=== PATIENT | female | born 1945 | race Caucasian/White ===

== ENCOUNTER 2017-07-10 13:40 | Emergency (ER) | payer MEDICARE ==
--- NOTE | 2017-07-10 14:25 | RAD ---
AP VIEW CHEST: Date: 07/10/17 HISTORY: 72-year-old with history of cough. FINDINGS: Comparison made to previous exam from 11/22/16. AP view of chest demonstrates the lungs to be well aerated. No evidence of active intrathoracic disea se is seen. No evidence of effusions, pneumonia, or pneumothorax seen. IMPRESSION: Unremarkable AP view of chest. POS: [facility]
[2017-07-10] MEDS ORDERED: predniSONE 20 MG TAB ONE (14:50)
== END 2017-07-10 15:11 | disposition home or self-care (01) ==
LOC: ERS 13:40
DX: J44.1 Chronic obstructive pulmonary disease with (acute) exacerbation (principal); Z87.891 Personal history of nicotine dependence
CPT/HCPCS: 71010; 93005; 94640; J7506

== ENCOUNTER 2019-03-19 11:59 | Outpatient (CLI) | payer MEDICARE ==
--- NOTE | 2019-03-19 14:04 | RAD ---
PA AND LATERAL VIEWS CHEST: Date: 03/19/19 HISTORY: Dyspnea. FINDINGS: Comparison made with exam of 07/10/17. The heart size is normal. The aorta is tortuous. The lungs are well expanded without lobar consolidat ion, pneumothoraces, or pleural effusions. There are degenerative changes in the spine. IMPRESSION: No acute process. POS: [facility]
== END 2019-03-19 12:00 | disposition home or self-care (01) ==
LOC: RAD 11:59
PROVIDERS: ATTEND Internal Medicine Pulmonary Disease
DX: R06.00 Dyspnea, unspecified (principal)
CPT/HCPCS: 71046

== ENCOUNTER 2019-04-15 13:40 | Outpatient (CLI) | payer MEDICARE ==
--- NOTE | 2019-04-15 13:56 | RAD ---
EXAM: XR Lumbar Spine 2 Or 3 View PROVIDED CLINICAL HISTORY: Low back pain COMPARISON: None FINDINGS: 5 nonrib-bearing lumbar-type vertebral bodies are demonstrated. There is slight anterolisthesis of L4 on L5. Lumbar alignment appears otherwise normal. Vertebral body heights appear preserved. Conspicuous disc space narrowing and endplate degenerative change with vacuum disc phenomenon at L2-3 . Intervertebral disc space heights appear otherwise preserved. Lower lumbar spine facet arthritis. Conspicuous colonic fecal retention. Vascular calcifications. IMPRESSION: 1. Lumbar degenerative change as described. 2. Conspicuous colonic fecal retention suggesting constipation.
--- NOTE | 2019-04-15 15:23 | RAD ---
XR Hip Lt 2-3 View: 04/15/2019 12:00 AM CLINICAL INDICATION: Pain COMPARISON: None. FINDINGS: Fracture:No fracture. Arthropathy:Moderate left hip joint osteoarthritis Incidental findings:None of significance. IMPRESSION: No acute osseous abnormality.
== END 2019-04-15 13:41 | disposition home or self-care (01) ==
LOC: RAD-FRANK 13:40
PROVIDERS: ATTEND Nurse Practitioner Family
DX: M25.552 Pain in left hip (principal); M54.5 Low back pain; M47.816 Spondylosis without myelopathy or radiculopathy, lumbar region
CPT/HCPCS: 72100

== ENCOUNTER 2019-04-22 13:19 | Outpatient (CLI) | payer MEDICARE ==
--- NOTE | 2019-04-22 14:41 | MRI ---
MRI Lower Ext Jt Lt hip WO Con HISTORY: Left hip pain avascular necrosis.. COMPARISON: Left hip films of 04/15/2019 FINDINGS: The SI joints are symmetric. There is no signs of any pelvic insufficiency-type fractures. Hardware involving the right hip obscures detail in this region. Small [id number] images of the left hip are performed which show marrow edema changes along the la teral side of the weightbearing surface of the femoral head with a small subchondral fracture present. This does not have a typical serpiginous appearance seen with avascular necrosis. The edema change extends along the lateral aspect of the femoral neck. There is an irregular frayed appearance to the anterior superior labrum small subchondral cyst is see n within the acetabulum. There is articular cartilage loss involving the femoral head associated with these changes. There is mild tendinosis of the gluteus medius tendon and minimal changes of the gluteus minimus tend on. No signs of muscle strain. IMPRESSION: 1. Marrow edema changes along the lateral weightbearing surface of the femoral head extending into th e femoral neck with a small subchondral insufficiency-type fracture present. There is also moderate articular cartilage loss of the femoral head in this region and associated degenerative changes of th e labrum.
== END 2019-04-22 13:20 | disposition home or self-care (01) ==
LOC: TBSIIMAG 13:19
PROVIDERS: ATTEND Orthopaedic Surgery
DX: M87.052 Idiopathic aseptic necrosis of left femur (principal); M16.12 Unilateral primary osteoarthritis, left hip

== ENCOUNTER 2019-10-22 11:02 | Outpatient (CLI) | payer MEDICARE ==
--- NOTE | 2019-10-22 11:23 | RAD ---
RIGHT FOOT 3 VIEWS: Date: 10/22/2019 HISTORY: Foot pain. FINDINGS: There is a transversely oriented fracture through the distal aspect of the proximal phalanx of the se cond toe. It appears nondisplaced. There are some mild arthritic changes of the first metatarsophalan geal joint and calcaneal spurs are noted. IMPRESSION: Fracture through the distal aspect of the proximal phalanx of the second toe. POS: [facility]
== END 2019-10-22 11:03 | disposition home or self-care (01) ==
LOC: RAD-FRANK 11:02
PROVIDERS: ATTEND Nurse Practitioner Family
DX: S99.921A Unspecified injury of right foot, initial encounter (principal); S92.511A Displaced fracture of proximal phalanx of right lesser toe(s), initial encounter for closed fracture

== ENCOUNTER 2020-04-28 14:04 | Outpatient (CLI) | payer MEDICARE ==
--- NOTE | 2020-04-28 14:21 | RAD ---
XR Chest Pa Lat STANDARD HISTORY: Dyspnea COMPARISON: 03/19/2019 FINDINGS: The heart size is normal. The aorta is tortuous. The lungs are well expanded without focal areas of consolidation, pneumothorax or pleural effusions. There are degenerative changes in the spine. IMPRESSION: No radiographic evidence of acute cardiopulmonary process.
== END 2020-04-28 14:05 | disposition home or self-care (01) ==
LOC: BICRAD 14:04
PROVIDERS: ATTEND Internal Medicine Pulmonary Disease
DX: R06.00 Dyspnea, unspecified (principal)
CPT/HCPCS: 71046

== ENCOUNTER 2020-06-03 13:06 | Inpatient (IN) | payer MEDICARE ==
[2020-06-03 14:10] LABS: #Lymphocytes 1.2 thou/uL (1.20-3.40); #Monocytes 0.6 thou/uL (0.11-0.59); #Neutrophils 2.9 thou/uL (1.40-6.50); %Basophils 0.5 % (0.0-1.0); %Eosinophils 0.1 % (0.0-10.0); %Lymphocytes 24.9 % (21.0-51.0); %Monocytes 12.3 % (0.0-10.0); %Neutrophils 62.2 % (42.0-75.0); Hemoglobin 13.7 g/dL (12.0-16.0); Mean Corpuscular HGB CONC 33.4 g/dL (32.0-36.0); Mean Corpuscular Hemoglobin 29.9 pg (27.0-31.0); Mean Corpuscular Volume 89.6 fL (78.0-98.0); Mean Platelet Volume 7.1 fL (7.4-10.4); Platelet Count 237 thou/uL (130-400); RBC Distribution Width 11.9 % (11.5-14.5); Red Blood Cell (RBC) Count 4.59 mill/uL (4.20-5.40); White Blood Cell (WBC) Count 4.7 thou/uL (4.8-10.8)
--- NOTE | 2020-06-03 14:11 | RAD ---
Chest AP view INDICATION: 75-year-old female with history of Covid positive status and increased cough and shortnes s of breath COMPARISON: April 28, 2020 FINDINGS: Lungs: There are new peripheral groundglass airspace opacities seen within the peripheral right uppe r lobe and right midlung. Patchy opacities are suspected within the left lower lobe. This is superimposed on moderate COPD change. Cardiac silhouette: The cardiomediastinal silhouette appears within normal limits. Pulmonary vasculature: Normal Pleural spaces: No pleural effusion or pneumothorax is demonstrated. Upper abdomen: No abnormality seen. Osseous structures: No acute osseous abnormality. Additional findings: None. IMPRESSION: New peripheral groundglass opacities within the right midlung and right upper lobe and possibly withi n the left lower lobe suspicious for atypical pneumonia. COPD change appears similar to the comparison.
[2020-06-03] MEDS ORDERED: Ondansetron ODT 4 MG TAB ONE (14:14)
[2020-06-03] MEDS ORDERED: Ibuprofen 200 MG TAB ONE (14:14)
[2020-06-03] MEDS ORDERED: Acetaminophen 500 MG TAB ONE (14:14)
[2020-06-03 14:31] LABS: ALT (SGPT) 26 U/L (8-55); AST (SGOT) 38 U/L (5-34); Albumin 3.7 g/dL (3.4-4.8); Alkaline Phosphatase 113 U/L (40-110); Anion Gap 14 mmol/L (10-20); BUN (Urea Nitrogen) 13 mg/dL (9.8-20.1); Bilirubin, Total 0.4 mg/dL (0.2-1.2); Calc. Creatinine Clearance 0 mL/min (70-130); Calcium 8.2 mg/dL (7.8-10.44); Carbon Dioxide 28 mmol/L (23-31); Chloride 101 mmol/L (98-107); Estimated GFR-MDRD 87; Globulin 2.4 g/dL (2.4-3.5); Glucose 98 mg/dL (83-110); Potassium 4.3 mmol/L (3.5-5.1); Protein, Total 6.1 g/dL (6.0-8.3); Sodium 139 mmol/L (136-145)
[2020-06-03] MEDS ORDERED: Azithromycin 250 MG TAB ONE (14:55)
[2020-06-03] MEDS ORDERED: Dexamethasone 4 MG TAB ONE (14:57)
--- NOTE | 2020-06-03 17:07 | PDOC.HHP ---
Hospitalist HPI - History of Present Illness Malaise History of Present Illness: Patient is a 75-year-old female with a history of some COPD. She reports that she started feeling bad about 8 days ago. 7 days ago she tested positive for Covid. Since that time she reports that she has felt horrible. She has a difficult time being more decisive and explaining that. She has sounds like generalized malaise given profound fatigue. She specifically says she has not felt significantly short of breath which surprises her because of her COPD. She has an inhaler at home but she has not used it in a week. She also denies significant fever. Her has also been Covid positive and similarly ill. She presented today because she said she simply could not tolerate feeling bad anymore. ED Course: [facility] Hospitalist ROS - Review of Systems Constitutional: reports: weakness, malaise. denies: fever, chills Respiratory: denies: cough, shortness of breath Cardiovascular: denies: chest pain, palpitations Gastrointestinal: denies: diarrhea, constipation Skin: reports: rash Neurological: reports: weakness Other: Poor appetite. Dryness in her throat. All other systems reviewed; all pertinent +/- noted in HPI/Subj - Medication Medications: Spiriva HandiHaler 18 mcg inhaled daily Advair Diskus 250/50 1 inhalation daily Lipitor 20 mg p.o. nightly Aspirin 81 mg daily Hospitalist History - Past Medical History Source: patient, old records Pulmonary: reports: COPD - Past Surgical History Other Surgical History: Uterine surgery. Right hip replacement 2012. - Family History Family History: reports: no pertinent history - Social History Smoking Status: Former smoker Alcohol: reports: None Drugs: reports: none Living Situation: With Family - Exam General Appearance: NAD, awake alert Neck: supple, symmetric, no JVD, no thyromegaly, no lymphadenopathy, no carotid bruit Heart: RRR, no murmur, no gallops, no rubs, normal peripheral pulses Respiratory: CTAB, no wheezes, no rales, no ronchi, normal chest expansion, no tachypnea, normal percussion Gastrointestinal: soft, non-tender, non-distended, normal bowel sounds, no palpable masses, no hepatomegaly, no splenomegaly, no bruit Extremities: no cyanosis, no clubbing, no edema Musculoskeletal: normal tone, normal strength, no muscle wasting Psychiatric: normal affect, lethargic Hospitalist Results - Labs Result Diagrams: 06/03/20 13:52 06/03/20 13:52 Lab results: WBC 4.7 thou/uL (4.8-10.8) L 06/03/20 13:52 Hgb 13.7 g/dL (12.0-16.0) 06/03/20 13:52 Hct 41.1 % (36.0-47.0) 06/03/20 13:52 MCV 89.6 fL (78.0-98.0) 06/03/20 13:52 Plt Count 237 thou/uL (130-400) 06/03/20 13:52 Neutrophils % 62.2 % (42.0-75.0) 06/03/20 13:52 Sodium 139 mmol/L (136-145) 06/03/20 13:52 Potassium 4.3 mmol/L (3.5-5.1) 06/03/20 13:52 Chloride 101 mmol/L (98-107) 06/03/20 13:52 Carbon Dioxide 28 mmol/L (23-31) 06/03/20 13:52 BUN 13 mg/dL (9.8-20.1) 06/03/20 13:52 Creatinine 0.66 mg/dL (0.6-1.1) 06/03/20 13:52 Glucose 98 mg/dL (83-110) 06/03/20 13:52 Calcium 8.2 mg/dL (7.8-10.44) 06/03/20 13:52 Total Bilirubin 0.4 mg/dL (0.2-1.2) 06/03/20 13:52 AST 38 U/L (5-34) H 06/03/20 13:52 ALT 26 U/L (8-55) 06/03/20 13:52 Alkaline Phosphatase 113 U/L (40-110) H 06/03/20 13:52 Troponin I Less than 0.010 ng/mL (< 0.028) 06/03/20 13:52 Serum Total Protein 6.1 g/dL (6.0-8.3) 06/03/20 13:52 Albumin 3.7 g/dL (3.4-4.8) 06/03/20 13:52 - Radiology Interpretation Chest x-ray Status: report reviewed by me Additional Comment: When compared to the chest x-ray of April 28, 2020 there are new peripheral groundglass opacities within the right midlung and right upper lobe and possibly within the left lower lobe suspicious for atypical pneumonia. COPD changes also present. Hospitalist H&P A/P - Problem (1) Acute respiratory failure with hypoxia Code(s): J96.01 - ACUTE RESPIRATORY FAILURE WITH HYPOXIA Status: Acute (2) COVID-19 virus infection Code(s): U07.1 - COVID-19 Status: Acute (3) COPD (chronic obstructive pulmonary disease) Status: Acute (4) Hyperlipidemia Code(s): E78.5 - HYPERLIPIDEMIA, UNSPECIFIED Status: Acute - Plan Plan: 75-year-old female presented to the emergency department with 1 week of Covid positivity, generalized malaise, poor appetite. She appeared to be satting fairly normally on room air however when she attempted to ambulate her oxygen saturation dropped into the 70s. She was subsequently placed on supplemental oxygen to maintain her work of breathing. Acute hypoxic respiratory failure: Patient has some mild patchy infiltrates on chest x-ray. She has COVID-19 pneumonia. Will maintain supplemental oxygen as needed. COVID-19 pneumonia: Findings on chest x-ray are consistent with her diagnosis of COVID-19 pneumonia. Do not suspect any underlying bacterial infection. White count is low consistent with Covid. We will keep her on Decadron and will initiate Remdesivir after discussion with ID. Check inflammatory markers in the morning. DVT prophylaxis with Lovenox twice daily. COPD: Supplemental oxygen, steroids, inhalers. Hyperlipidemia: Continue statin.
[2020-06-03 17:29] VITALS: BMI 25.4
[2020-06-03] MEDS ORDERED: REMDESIVIR (EUA) 200 MG in Sodium Chloride 0.9% 250 ML 210 ML IV SCH (17:45)
[2020-06-03] MEDS: Sodium Chloride 0.9% 1,000 ML IV SCH (18:05)
[2020-06-03] MEDS: Famotidine 20 MG TAB PO SCH (20:44)
[2020-06-03] MEDS: Enoxaparin Sodium 40 MG/0.4 ML SYRINGE SC SCH (20:45)
[2020-06-04] MEDS: Sodium Chloride 0.9% 1,000 ML IV SCH ×2 (06:32→20:19)
[2020-06-04 06:45] LABS: Hemoglobin 13.3 g/dL (12.0-16.0); Mean Corpuscular HGB CONC 32.2 g/dL (32.0-36.0); Mean Corpuscular Hemoglobin 29.7 pg (27.0-31.0); Mean Corpuscular Volume 92.4 fL (78.0-98.0); Mean Platelet Volume 7.5 fL (7.4-10.4); Platelet Count 190 thou/uL (130-400); RBC Distribution Width 11.8 % (11.5-14.5); Red Blood Cell (RBC) Count 4.47 mill/uL (4.20-5.40); White Blood Cell (WBC) Count 1.7 thou/uL (4.8-10.8)
[2020-06-04 07:02] LABS: ALT (SGPT) 21 U/L (8-55); AST (SGOT) 25 U/L (5-34); Albumin 3.2 g/dL (3.4-4.8); Alkaline Phosphatase 101 U/L (40-110); Bilirubin, Direct 0.2 mg/dL (0.1-0.3); Bilirubin, Total 0.2 mg/dL (0.2-1.2); Protein, Total 5.7 g/dL (6.0-8.3)
[2020-06-04 07:03] LABS: Anion Gap 13 mmol/L (10-20); BUN (Urea Nitrogen) 13 mg/dL (9.8-20.1); Calc. Creatinine Clearance 73 mL/min (70-130); Calcium 7.9 mg/dL (7.8-10.44); Carbon Dioxide 21 mmol/L (23-31); Chloride 110 mmol/L (98-107); Estimated GFR-MDRD 86; Glucose 261 mg/dL (83-110); Sodium 140 mmol/L (136-145)
[2020-06-04] MEDS: Dexamethasone 4 MG TAB PO SCH (08:01)
[2020-06-04] MEDS: Cholecalciferol (Vitamin D3) 400 UNITS TAB PO SCH (08:01)
[2020-06-04] MEDS: Famotidine 20 MG TAB PO SCH ×2 (08:01→20:19)
[2020-06-04] MEDS: Ascorbic Acid 500 mg Chewable Tablet PO SCH (08:01)
[2020-06-04] MEDS: Enoxaparin Sodium 40 MG/0.4 ML SYRINGE SC SCH ×2 (08:01→20:19)
[2020-06-04] MEDS: Zinc Sulfate 220 MG CAP PO SCH (08:02)
[2020-06-04 09:06] LABS: #Lymphocytes 0.6 thou/uL (1.20-3.40); #Monocytes 0.2 thou/uL (0.11-0.59); #Neutrophils 0.8 thou/uL (1.40-6.50); %Basophils 2.1 % (0.0-1.0); %Eosinophils 0.2 % (0.0-10.0); %Lymphocytes 35.7 % (21.0-51.0); %Monocytes 13.5 % (0.0-10.0); %Neutrophils 48.5 % (42.0-75.0); Band 4 % (5-11); Lymphocytes 36 % (21-51); MDiff Complete? YES; Monocytes 19 % (0-10); Neutrophil 41 % (42-75); RBC Morphology Normal
--- NOTE | 2020-06-04 15:47 | PDOC.HOSPP ---
- Subjective Encounter Date: 06/04/20 Subjective: The patient still complains of shortness of breath and cough. - Objective Vital Signs & Weight: Vital Signs (12 hours) Temp Pulse Resp BP Pulse Ox 06/04/20 13:15 97.9 F 64 16 114/73 96 06/04/20 08:03 97.8 F 58 L 18 121/75 96 06/04/20 05:06 97.9 F 65 18 105/64 97 Weight Admit Weight 143 lb 4.8 oz Weight 143 lb 4.807 oz I&O: 06/03/20 06/04/20 06/05/20 06:59 06:59 06:59 Intake Total 1150 240 Balance 1150 240 Result Diagrams: 06/04/20 06:26 06/04/20 06:26 Hospitalist ROS - Medication Medications: Active Medications Generic Name Dose Route Start Last Admin Trade Name Freq PRN Reason Stop Dose Admin Ascorbic Acid 1,000 mg 06/04/20 09:00 06/04/20 08:01 Ascorbic Acid 500 Mg Chewable Tablet PO 1,000 mg DAILY CHE Administration Cholecalciferol 400 units 06/04/20 09:00 06/04/20 08:01 Cholecalciferol (Vitamin D3) 400 Units Tab PO 400 units DAILY CHE Administration Dexamethasone 6 mg 06/04/20 08:00 06/04/20 08:01 Dexamethasone 4 Mg Tab PO 6 mg QAM-WM CHE Administration Enoxaparin Sodium 40 mg 06/03/20 21:00 06/04/20 08:01 Enoxaparin Sodium 40 Mg/0.4 Ml Syringe SC 40 mg BID CHE Administration Famotidine 20 mg 06/03/20 21:00 06/04/20 08:01 Famotidine 20 Mg Tab PO 20 mg BID CHE Administration Sodium Chloride 1,000 mls @ 75 mls/hr 06/03/20 17:00 06/04/20 06:32 Normal Saline 0.9% IV 1,000 mls .[id number] CHE Administration Zinc Sulfate 220 mg 06/04/20 09:00 06/04/20 08:02 Zinc Sulfate 220 Mg Cap PO 220 mg DAILY CHE Administration - Exam General Appearance: awake alert ENT: normocephalic atraumatic Neck: supple, no JVD Heart: RRR Extremities: no cyanosis, no clubbing Neurological: cranial nerve grossly intact, no focal deficits Hosp A/P (1) Acute respiratory failure with hypoxia Code(s): J96.01 - ACUTE RESPIRATORY FAILURE WITH HYPOXIA Status: Acute (2) COPD (chronic obstructive pulmonary disease) Status: Acute (3) COVID-19 virus infection Code(s): U07.1 - COVID-19 Status: Acute (4) Hyperlipidemia Code(s): E78.5 - HYPERLIPIDEMIA, UNSPECIFIED Status: Acute - Plan Continue supplemental oxygen as needed. The patient is remdesivir, dexamethasone, and nebulizer treatments. Continue anticoagulation with enoxaparin.
[2020-06-04] MEDS: REMDESIVIR (EUA) 100 MG in Sodium Chloride 0.9% 250 ML 230 ML IV SCH (17:34)
[2020-06-04] MEDS: Senokot S 8.6-50 MG TAB PO PRN (22:04)
[2020-06-05 08:04] LABS: ALT (SGPT) 17 U/L (8-55); AST (SGOT) 21 U/L (5-34); Albumin 3.1 g/dL (3.4-4.8); Alkaline Phosphatase 84 U/L (40-110); Bilirubin, Direct 0.2 mg/dL (0.1-0.3); Bilirubin, Total 0.2 mg/dL (0.2-1.2); Protein, Total 5.1 g/dL (6.0-8.3)
[2020-06-05] MEDS: Enoxaparin Sodium 40 MG/0.4 ML SYRINGE SC SCH ×2 (08:46→21:16)
[2020-06-05] MEDS: Famotidine 20 MG TAB PO SCH ×2 (08:46→21:16)
[2020-06-05] MEDS: Dexamethasone 4 MG TAB PO SCH (08:46)
[2020-06-05] MEDS: Ascorbic Acid 500 mg Chewable Tablet PO SCH (08:46)
[2020-06-05] MEDS: Zinc Sulfate 220 MG CAP PO SCH (08:46)
[2020-06-05] MEDS: Sodium Chloride 0.9% 1,000 ML IV SCH ×3 (08:47→23:13)
[2020-06-05] MEDS: Cholecalciferol (Vitamin D3) 400 UNITS TAB PO SCH (12:25)
[2020-06-05] MEDS: Senokot S 8.6-50 MG TAB PO PRN (12:25)
[2020-06-05] MEDS: REMDESIVIR (EUA) 100 MG in Sodium Chloride 0.9% 250 ML 230 ML IV SCH (17:59)
--- NOTE | 2020-06-05 18:03 | PDOC.HOSPP ---
- Subjective Encounter Date: 06/05/20 Subjective: Still oxygen dependent but feels better. - Objective Vital Signs & Weight: Vital Signs (12 hours) Temp Pulse Resp BP Pulse Ox 06/05/20 08:00 97.9 F 53 L 18 120/74 96 Weight Admit Weight 143 lb 4.8 oz Weight 143 lb 4.807 oz I&O: 06/04/20 06/05/20 06/06/20 06:59 06:59 06:59 Intake Total 1150 360 Balance 1150 360 Result Diagrams: 06/04/20 06:26 06/04/20 06:26 Hospitalist ROS - Medication Medications: Active Medications Generic Name Dose Route Start Last Admin Trade Name Freq PRN Reason Stop Dose Admin Ascorbic Acid 1,000 mg 06/04/20 09:00 06/05/20 08:46 Ascorbic Acid 500 Mg Chewable Tablet PO 1,000 mg DAILY CHE Administration Cholecalciferol 400 units 06/04/20 09:00 06/05/20 12:25 Cholecalciferol (Vitamin D3) 400 Units Tab PO 400 units DAILY CHE Administration Dexamethasone 6 mg 06/04/20 08:00 06/05/20 08:46 Dexamethasone 4 Mg Tab PO 6 mg QAM-WM CHE Administration Enoxaparin Sodium 40 mg 06/03/20 21:00 06/05/20 08:46 Enoxaparin Sodium 40 Mg/0.4 Ml Syringe SC 40 mg BID CHE Administration Famotidine 20 mg 06/03/20 21:00 06/05/20 08:46 Famotidine 20 Mg Tab PO 20 mg BID CHE Administration Sodium Chloride 1,000 mls @ 75 mls/hr 06/03/20 17:00 06/05/20 08:47 Normal Saline 0.9% IV 1,000 mls .[id number] CHE Administration Remdesivir 100 mg/ Sodium 250 mls @ 250 mls/hr 06/04/20 18:00 06/04/20 17:34 Chloride IV 06/07/20 18:59 250 mls 1800 CHE Administration Senna/Docusate Sodium 2 tab 06/04/20 21:45 06/05/20 12:25 Senokot S 8.6-50 Mg Tab PO 2 tab BID PRN Administration Constipation Zinc Sulfate 220 mg 06/04/20 09:00 06/05/20 08:46 Zinc Sulfate 220 Mg Cap PO 220 mg DAILY CHE Administration - Exam General Appearance: awake alert ENT: normocephalic atraumatic Neck: supple, no JVD Heart: RRR Respiratory: normal chest expansion, no tachypnea Gastrointestinal: soft Extremities: no cyanosis, no clubbing Neurological: cranial nerve grossly intact, no focal deficits Hosp A/P (1) Acute respiratory failure with hypoxia Code(s): J96.01 - ACUTE RESPIRATORY FAILURE WITH HYPOXIA Status: Acute (2) COPD (chronic obstructive pulmonary disease) Status: Acute (3) COVID-19 virus infection Code(s): U07.1 - COVID-19 Status: Acute (4) Hyperlipidemia Code(s): E78.5 - HYPERLIPIDEMIA, UNSPECIFIED Status: Acute - Plan Continue supplemental oxygen as needed. The patient is remdesivir, dexamethasone, and nebulizer treatments. Continue to monitor LFTs. Continue anticoagulation with enoxaparin.
[2020-06-06] MEDS: Enoxaparin Sodium 40 MG/0.4 ML SYRINGE SC SCH (07:53)
[2020-06-06] MEDS: Zinc Sulfate 220 MG CAP PO SCH (07:54)
[2020-06-06] MEDS: Famotidine 20 MG TAB PO SCH ×2 (07:54→19:35)
[2020-06-06] MEDS: Ascorbic Acid 500 mg Chewable Tablet PO SCH (07:54)
[2020-06-06] MEDS: Dexamethasone 4 MG TAB PO SCH (07:54)
[2020-06-06] MEDS: Cholecalciferol (Vitamin D3) 400 UNITS TAB PO SCH (07:54)
[2020-06-06] MEDS: Sodium Chloride 0.9% 1,000 ML IV SCH (08:16)
[2020-06-06 08:17] LABS: #Lymphocytes 1.4 thou/uL (1.20-3.40); #Monocytes 0.6 thou/uL (0.11-0.59); #Neutrophils 3.7 thou/uL (1.40-6.50); %Eosinophils 0.1 % (0.0-10.0); %Lymphocytes 24.6 % (21.0-51.0); %Monocytes 10.3 % (0.0-10.0); Hemoglobin 12.4 g/dL (12.0-16.0); Mean Corpuscular HGB CONC 32.5 g/dL (32.0-36.0); Mean Corpuscular Hemoglobin 29.6 pg (27.0-31.0); Mean Corpuscular Volume 91.2 fL (78.0-98.0); Mean Platelet Volume 7.8 fL (7.4-10.4); Platelet Count 235 thou/uL (130-400); RBC Distribution Width 11.9 % (11.5-14.5); Red Blood Cell (RBC) Count 4.19 mill/uL (4.20-5.40); White Blood Cell (WBC) Count 5.7 thou/uL (4.8-10.8)
[2020-06-06 08:30] LABS: ALT (SGPT) 16 U/L (8-55); AST (SGOT) 16 U/L (5-34); Alkaline Phosphatase 83 U/L (40-110); Anion Gap 14 mmol/L (10-20); BUN (Urea Nitrogen) 13 mg/dL (9.8-20.1); Bilirubin, Direct 0.2 mg/dL (0.1-0.3); Bilirubin, Total 0.3 mg/dL (0.2-1.2); Calc. Creatinine Clearance 93 mL/min (70-130); Calcium 7.8 mg/dL (7.8-10.44); Carbon Dioxide 22 mmol/L (23-31); Chloride 110 mmol/L (98-107); Estimated GFR-MDRD Greater than 90; Glucose 94 mg/dL (83-110); Protein, Total 5.3 g/dL (6.0-8.3); Sodium 142 mmol/L (136-145)
[2020-06-06 08:32] LABS: ALT (SGPT) 14 U/L (8-55); AST (SGOT) 16 U/L (5-34); Alkaline Phosphatase 80 U/L (40-110); Anion Gap 14 mmol/L (10-20); BUN (Urea Nitrogen) 13 mg/dL (9.8-20.1); Bilirubin, Total 0.2 mg/dL (0.2-1.2); Calc. Creatinine Clearance 85 mL/min (70-130); Calcium 7.7 mg/dL (7.8-10.44); Carbon Dioxide 25 mmol/L (23-31); Chloride 107 mmol/L (98-107); Estimated GFR-MDRD Greater than 90; Globulin 2.2 g/dL (2.4-3.5); Glucose 98 mg/dL (83-110); Potassium 3.9 mmol/L (3.5-5.1); Protein, Total 5.2 g/dL (6.0-8.3); Sodium 142 mmol/L (136-145)
[2020-06-06] MEDS ORDERED: Albuterol 200 PUFF (6.7GM INHALER) INH PRN (13:03)
--- NOTE | 2020-06-06 13:14 | PDOC.HOSPP ---
- Subjective Encounter Date: 06/06/20 (f/u COVID pneumonia) Encounter Time: 13:12 Subjective: Pt reports not feeling as well this morning as yesterday. States this afternoon is better. She reports poor appetite, some productive cough. She denies any cp or change in breathing. - Objective Vital Signs & Weight: Vital Signs (12 hours) Temp Pulse Resp BP Pulse Ox 06/06/20 08:14 98 F 67 20 157/73 H 95 06/06/20 08:00 95 Weight Admit Weight 143 lb 4.8 oz Weight 143 lb 4.807 oz I&O: 06/05/20 06/06/20 06/07/20 06:59 06:59 06:59 Intake Total 360 1555 Balance 360 1555 Result Diagrams: 06/06/20 07:40 06/06/20 07:40 Hospitalist ROS - Medication Medications: Active Medications Generic Name Dose Route Start Last Admin Trade Name Freq PRN Reason Stop Dose Admin Ascorbic Acid 1,000 mg 06/04/20 09:00 06/06/20 07:54 Ascorbic Acid 500 Mg Chewable Tablet PO 1,000 mg DAILY CHE Administration Cholecalciferol 400 units 06/04/20 09:00 06/06/20 07:54 Cholecalciferol (Vitamin D3) 400 Units Tab PO 400 units DAILY CHE Administration Dexamethasone 6 mg 06/04/20 08:00 06/06/20 07:54 Dexamethasone 4 Mg Tab PO 6 mg QAM-WM CHE Administration Famotidine 20 mg 06/03/20 21:00 06/06/20 07:54 Famotidine 20 Mg Tab PO 20 mg BID CHE Administration Remdesivir 100 mg/ Sodium 250 mls @ 250 mls/hr 06/04/20 18:00 06/05/20 17:59 Chloride IV 06/07/20 18:59 250 mls 1800 CHE Administration Senna/Docusate Sodium 2 tab 06/04/20 21:45 06/05/20 12:25 Senokot S 8.6-50 Mg Tab PO 2 tab BID PRN Administration Constipation Zinc Sulfate 220 mg 06/04/20 09:00 06/06/20 07:54 Zinc Sulfate 220 Mg Cap PO 220 mg DAILY CHE Administration - Exam General Appearance: NAD Heart: RRR, no murmur Respiratory: no wheezes, no rales, no ronchi Respiratory - other findings: good air movement Gastrointestinal: soft, non-tender, non-distended, normal bowel sounds Extremities: no cyanosis, no clubbing, no edema Psychiatric: normal affect Hosp A/P (1) Acute respiratory failure with hypoxia Code(s): J96.01 - ACUTE RESPIRATORY FAILURE WITH HYPOXIA Status: Acute (2) COPD (chronic obstructive pulmonary disease) Status: Acute Qualifiers: COPD type: unspecified COPD Qualified Code(s): J44.9 - Chronic obstructive pulmonary disease, unspecified (3) COVID-19 virus infection Code(s): U07.1 - COVID-19 Status: Acute - Plan Acute resp failure secondary to covid pneumonia - on steroids, remdesivir - continue supplemental oxygen - wean as tolerated - prn MDI albuterol - check inflammatory markers tomorrow Dyslipidemia - per chart review, pt denies any medications at home Pt taking PO -d/c IVF dvt prophy - lovenox - change to once daily gi prophy - on famotidine while on steroids code status - full reviewed plan of care with patient, no questions or further needs at end of eval.
--- NOTE | 2020-06-06 17:13 | EKG ---
Test Reason : Blood Pressure : / mmHG Vent. Rate : 071 BPM Atrial Rate : 071 BPM P-R Int : 166 ms QRS Dur : 076 ms QT Int : 360 ms P-R-T Axes : 080 035 076 degrees QTc Int : 391 ms Normal sinus rhythm Normal ECG Confirmed by RAVIN CAMACHO DO ([id number]), editor publications ZARIA JOHNSON ([id number]) on 06/06/2020 5:12:31 PM Referred By: Confirmed By:RAVIN CAMACHO DO
[2020-06-06] MEDS: REMDESIVIR (EUA) 100 MG in Sodium Chloride 0.9% 250 ML 230 ML IV SCH (19:35)
[2020-06-07 06:58] LABS: #Lymphocytes 1.8 thou/uL (1.20-3.40); #Monocytes 0.6 thou/uL (0.11-0.59); #Neutrophils 3.4 thou/uL (1.40-6.50); %Eosinophils 0.2 % (0.0-10.0); %Lymphocytes 30.9 % (21.0-51.0); %Monocytes 10.8 % (0.0-10.0); %Neutrophils 58.1 % (42.0-75.0); Hemoglobin 12.7 g/dL (12.0-16.0); Mean Corpuscular HGB CONC 32.1 g/dL (32.0-36.0); Mean Corpuscular Hemoglobin 29.1 pg (27.0-31.0); Mean Corpuscular Volume 90.8 fL (78.0-98.0); Mean Platelet Volume 7.6 fL (7.4-10.4); Platelet Count 266 thou/uL (130-400); RBC Distribution Width 11.8 % (11.5-14.5); Red Blood Cell (RBC) Count 4.35 mill/uL (4.20-5.40); White Blood Cell (WBC) Count 5.9 thou/uL (4.8-10.8)
[2020-06-07 07:20] LABS: ALT (SGPT) 17 U/L (8-55); AST (SGOT) 18 U/L (5-34); Albumin 3.1 g/dL (3.4-4.8); Alkaline Phosphatase 83 U/L (40-110); Anion Gap 14 mmol/L (10-20); BUN (Urea Nitrogen) 14 mg/dL (9.8-20.1); Bilirubin, Direct 0.2 mg/dL (0.1-0.3); Bilirubin, Total 0.4 mg/dL (0.2-1.2); Calc. Creatinine Clearance 91 mL/min (70-130); Calcium 8.2 mg/dL (7.8-10.44); Carbon Dioxide 27 mmol/L (23-31); Chloride 104 mmol/L (98-107); Estimated GFR-MDRD Greater than 90; Glucose 90 mg/dL (83-110); Potassium 3.9 mmol/L (3.5-5.1); Protein, Total 5.3 g/dL (6.0-8.3); Sodium 141 mmol/L (136-145)
[2020-06-07] MEDS: Enoxaparin Sodium 40 MG/0.4 ML SYRINGE SC SCH (08:25)
[2020-06-07] MEDS: Dexamethasone 4 MG TAB PO SCH (08:25)
[2020-06-07] MEDS: Ascorbic Acid 500 mg Chewable Tablet PO SCH (08:26)
[2020-06-07] MEDS: Zinc Sulfate 220 MG CAP PO SCH (08:26)
[2020-06-07] MEDS: Famotidine 20 MG TAB PO SCH ×2 (08:26→20:00)
[2020-06-07] MEDS: Cholecalciferol (Vitamin D3) 400 UNITS TAB PO SCH (08:26)
--- NOTE | 2020-06-07 14:21 | PDOC.HOSPP ---
- Subjective Encounter Date: 06/07/20 (acute resp failure due to covid pna) Encounter Time: 14:19 Subjective: Pt reports feeling tired. Breathing is about the same, she was able to bathe earlier today. She denies any n/v/abd pain. She continues to cough. She denies any new sx. - Objective Vital Signs & Weight: Vital Signs (12 hours) Temp Pulse Resp BP Pulse Ox 06/07/20 08:45 98.1 F 71 24 H 113/64 96 06/07/20 08:00 96 Weight Admit Weight 143 lb 4.8 oz Weight 143 lb 4.807 oz I&O: 06/06/20 06/07/20 06/08/20 06:59 06:59 06:59 Intake Total 1555 930 350 Balance 1555 930 350 Result Diagrams: 06/07/20 06:31 06/07/20 06:31 Hospitalist ROS - Medication Medications: Active Medications Generic Name Dose Route Start Last Admin Trade Name Freq PRN Reason Stop Dose Admin Ascorbic Acid 1,000 mg 06/04/20 09:00 06/07/20 08:26 Ascorbic Acid 500 Mg Chewable Tablet PO 1,000 mg DAILY CHE Administration Cholecalciferol 400 units 06/04/20 09:00 06/07/20 08:26 Cholecalciferol (Vitamin D3) 400 Units Tab PO 400 units DAILY CHE Administration Dexamethasone 6 mg 06/04/20 08:00 06/07/20 08:25 Dexamethasone 4 Mg Tab PO 6 mg QAM-WM CHE Administration Enoxaparin Sodium 40 mg 06/07/20 09:00 06/07/20 08:25 Enoxaparin Sodium 40 Mg/0.4 Ml Syringe SC 40 mg DAILY CHE Administration Famotidine 20 mg 06/03/20 21:00 06/07/20 08:26 Famotidine 20 Mg Tab PO 20 mg BID CHE Administration Remdesivir 100 mg/ Sodium 250 mls @ 250 mls/hr 06/04/20 18:00 06/06/20 19:35 Chloride IV 06/07/20 18:59 250 mls 1800 CHE Administration Senna/Docusate Sodium 2 tab 06/04/20 21:45 06/05/20 12:25 Senokot S 8.6-50 Mg Tab PO 2 tab BID PRN Administration Constipation Zinc Sulfate 220 mg 06/04/20 09:00 06/07/20 08:26 Zinc Sulfate 220 Mg Cap PO 220 mg DAILY CHE Administration - Exam General Appearance: NAD Heart: RRR, no murmur Respiratory: no wheezes, no rales, no ronchi Gastrointestinal: soft, non-tender, non-distended, normal bowel sounds Extremities: no cyanosis, no clubbing, no edema Psychiatric: normal affect Hosp A/P (1) Acute respiratory failure with hypoxia Code(s): J96.01 - ACUTE RESPIRATORY FAILURE WITH HYPOXIA Status: Acute (2) COPD (chronic obstructive pulmonary disease) Status: Acute Qualifiers: COPD type: unspecified COPD Qualified Code(s): J44.9 - Chronic obstructive pulmonary disease, unspecified (3) COVID-19 virus infection Code(s): U07.1 - COVID-19 Status: Acute - Plan Acute resp failure secondary to covid pneumonia - overall pt is improving based on lower oxygen requirement, feeling better overall, and improved 2 of 3 inflammatory markers - on steroids, remdesivir - last dose is tonight - continue supplemental oxygen - wean as tolerated - prn MDI albuterol - inflammatory markers - improved d-dimer and crp, more elevated ferritin - PT/OT eval of strength and for input on safety with discharge planning - pt desires home Dyslipidemia - per chart review, pt denies any medications at home dvt prophy - lovenox daily gi prophy - on famotidine while on steroids code status - full reviewed plan of care with patient, no questions or further needs at end of eval. anticipate d/c in the next few days based on ability to ambulate, determination on oxygen need, and any additional input from ID.
[2020-06-07] MEDS: REMDESIVIR (EUA) 100 MG in Sodium Chloride 0.9% 250 ML 230 ML IV SCH (17:35)
[2020-06-08] MEDS: Famotidine 20 MG TAB PO SCH ×2 (09:05→20:02)
[2020-06-08] MEDS: Enoxaparin Sodium 40 MG/0.4 ML SYRINGE SC SCH (09:05)
[2020-06-08] MEDS: Dexamethasone 4 MG TAB PO SCH (09:05)
[2020-06-08] MEDS: Ascorbic Acid 500 mg Chewable Tablet PO SCH (09:05)
[2020-06-08] MEDS: Zinc Sulfate 220 MG CAP PO SCH (09:06)
[2020-06-08] MEDS: Cholecalciferol (Vitamin D3) 400 UNITS TAB PO SCH (09:25)
--- NOTE | 2020-06-08 11:01 | PDOC.HOSPP ---
- Subjective Encounter Date: 06/08/20 Encounter Time: 11:05 Subjective: sitting comfortably without O2 - Objective Vital Signs & Weight: Vital Signs (12 hours) Temp Pulse Resp BP Pulse Ox 06/08/20 09:26 98.2 F 72 16 108/68 98 Weight Admit Weight 143 lb 4.8 oz Weight 143 lb 4.807 oz I&O: 06/07/20 06/08/20 06/09/20 06:59 06:59 06:59 Intake Total 930 1320 Balance 930 1320 Result Diagrams: 06/07/20 06:31 06/07/20 06:31 Hospitalist ROS - Medication Medications: Active Medications Generic Name Dose Route Start Last Admin Trade Name Freq PRN Reason Stop Dose Admin Albuterol Sulfate 2 puff 06/06/20 13:03 06/07/20 20:21 Albuterol 200 Puff (6.7gm Inhaler) INH 2 puff Q4H PRN Administration SOB &/or Wheezing Ascorbic Acid 1,000 mg 06/04/20 09:00 06/08/20 09:05 Ascorbic Acid 500 Mg Chewable Tablet PO 1,000 mg DAILY CHE Administration Cholecalciferol 400 units 06/04/20 09:00 06/08/20 09:25 Cholecalciferol (Vitamin D3) 400 Units Tab PO 400 units DAILY CHE Administration Dexamethasone 6 mg 06/04/20 08:00 06/08/20 09:05 Dexamethasone 4 Mg Tab PO 6 mg QAM-WM CHE Administration Enoxaparin Sodium 40 mg 06/07/20 09:00 06/08/20 09:05 Enoxaparin Sodium 40 Mg/0.4 Ml Syringe SC 40 mg DAILY CHE Administration Famotidine 20 mg 06/03/20 21:00 06/08/20 09:05 Famotidine 20 Mg Tab PO 20 mg BID CHE Administration Senna/Docusate Sodium 2 tab 06/04/20 21:45 06/05/20 12:25 Senokot S 8.6-50 Mg Tab PO 2 tab BID PRN Administration Constipation Zinc Sulfate 220 mg 06/04/20 09:00 06/08/20 09:06 Zinc Sulfate 220 Mg Cap PO 220 mg DAILY CHE Administration - Exam General Appearance: awake alert Neck: no JVD Heart: RRR, no murmur Respiratory - other findings: scattered fine rales, good BS Gastrointestinal: soft, non-tender, normal bowel sounds Extremities: no edema Hosp A/P (1) Pneumonia due to COVID-19 virus Code(s): U07.1 - COVID-19; J12.89 - OTHER VIRAL PNEUMONIA Status: Acute (2) COPD (chronic obstructive pulmonary disease) Status: Acute Qualifiers: COPD type: unspecified COPD Qualified Code(s): J44.9 - Chronic obstructive pulmonary disease, unspecified (3) Hyperlipidemia Code(s): E78.5 - HYPERLIPIDEMIA, UNSPECIFIED Status: Acute - Plan cont decadron remdesvir conpleted check aambulatory O2 Sat
[2020-06-09] MEDS: Enoxaparin Sodium 40 MG/0.4 ML SYRINGE SC SCH (08:57)
[2020-06-09] MEDS: Cholecalciferol (Vitamin D3) 400 UNITS TAB PO SCH (08:57)
[2020-06-09] MEDS: Zinc Sulfate 220 MG CAP PO SCH (08:57)
[2020-06-09] MEDS: Ascorbic Acid 500 mg Chewable Tablet PO SCH (08:57)
[2020-06-09] MEDS: Famotidine 20 MG TAB PO SCH (08:57)
[2020-06-09] MEDS: Dexamethasone 4 MG TAB PO SCH (08:57)
[2020-06-09 09:20] VITALS: TEMP 97.9
--- NOTE | 2020-06-09 10:35 | DIS ---
DATE OF ADMISSION: 06/03/2020 DATE OF DISCHARGE: 06/09/2020 PRIMARY CARE PROVIDER: SHEILA Hernández DISPOSITION: Discharged home. FINAL DIAGNOSES: 1. Acute respiratory failure with hypoxia, resolved. 2. COVID pneumonia. 3. Chronic obstructive pulmonary disease. 4. Dyslipidemia. DISCHARGE MEDICATIONS: 1. Dexamethasone 8 mg a day for 4 more days. 2. Ellipta 100/62.5/25 as directed. 3. Albuterol HFA two puffs q.4 hours p.r.n. ALLERGIES: CODEINE. PENDING AT TIME OF DISCHARGE: Nothing. CODE STATUS: Full. DIET: Heart healthy. HOSPITAL COURSE: The patient admitted to the Hospitalist Service with history of COPD, 8 days of feeling bad. She tested positive for COVID 7 days previous to admission. She became more short of breath. She presented to the hospital. She had marked desaturation of her O2 with any walking, down into the 70s, placed on oxygen. Chest x-ray was consistent with COVID pneumonia. She was placed on Decadron, initiated remdesivir per Infectious Disease. No formal consults. No procedures were done. On admission, her white count was 4.7. D-dimers consecutively, 06/03 of 0.76, 06/07 of 0.55, 06/08 of 0.50. Comprehensive metabolic profile unremarkable except for elevated blood sugar, which was followed by normal numbers. C-reactive protein was 2.85. Ferritin was 254. The ferritin went up to 328. C-reactive protein dropped to 0.6. She is now 100% saturation on room air. She is ambulating without decompensating. Chest is clear. She is desirous of going home. She is being discharged home. Quarantine has been discussed with her. As mentioned in the med, she will be given 4 more days of Decadron. She has been requested to follow up with her PCP in 3 to 7 days. Job ID: [id number] [facility]
[2020-06-09 11:29] VITALS: BP 100/63
== END 2020-06-09 11:57 | disposition home or self-care (01) | DRG 177 ==
LOC: ERS 13:06 → T4-A 17:08
PROVIDERS: ADMIT Internal Medicine; ATTEND Internal Medicine
PROC: 8E0ZXY6 Isolation (ICD-10-PCS; principal; 2020-06-03)
PROC: XW033E5 Introduction of Remdesivir Anti-infective into Peripheral Vein, Percutaneous Approach, New Technology Group 5 (ICD-10-PCS; 2020-06-03)
DX: U07.1 COVID-19 (principal); J12.89 Other viral pneumonia; J96.01 Acute respiratory failure with hypoxia; J43.9 Emphysema, unspecified; Z96.641 Presence of right artificial hip joint; E78.5 Hyperlipidemia, unspecified; Z87.891 Personal history of nicotine dependence; Z88.5 Allergy status to narcotic agent; Z79.51 Long term (current) use of inhaled steroids; Z79.82 Long term (current) use of aspirin; Z79.899 Other long term (current) drug therapy
CPT/HCPCS: 36415; 71045; 80048; 80053; 80076; 82728; 84484; 85025; 85379; 86140; 93005; J1650; J7050; J8540; Q0162

== ENCOUNTER 2020-07-02 13:29 | Outpatient (CLI) | payer MEDICARE ==
--- NOTE | 2020-07-02 14:47 | RAD ---
2 VIEW CHEST: Date: 07/02/2020 HISTORY: Dyspnea. COMPARISON: 06/03/2020. FINDINGS: Increased interstitial markings in the upper lungs bilaterally with some hazy confluence in the mid u pper left lung suggests a new hazy infiltrative changes possibly related to COVID pneumonia. No conso lidation or significant effusion. Vasculature normal. Heart size normal. IMPRESSION: Evidence of interstitial and hazy alveolar infiltrates in the upper lung [place] with a focal area of confluence in the left upper lung which could represent focal atelectasis or infiltrate. POS: [facility]
== END 2020-07-02 13:30 | disposition home or self-care (01) ==
LOC: BICRAD 13:29
PROVIDERS: ATTEND Internal Medicine Pulmonary Disease
DX: R06.00 Dyspnea, unspecified (principal); R91.8 Other nonspecific abnormal finding of lung field
CPT/HCPCS: 71046

== ENCOUNTER 2021-06-22 14:17 | Outpatient (CLI) | payer MEDICARE | END 2021-06-22 14:18 | disposition home or self-care (01) | LOC: BICCT 14:17 | PROVIDERS: ATTEND Nurse Practitioner Family | DX: Z09 Encounter for follow-up examination after completed treatment for conditions other than malignant neoplasm (principal); G45.9 Transient cerebral ischemic attack, unspecified; I61.8 Other nontraumatic intracerebral hemorrhage; J44.9 Chronic obstructive pulmonary disease, unspecified; E78.5 Hyperlipidemia, unspecified; R51.9 Headache, unspecified; R93.0 Abnormal findings on diagnostic imaging of skull and head, not elsewhere classified | CPT/HCPCS: 70450 ==

== ENCOUNTER 2023-03-01 12:29 | Outpatient (CLI) | payer MEDICARE ==
[2023-03-01 13:22] LABS: #Basophils 0.1 10x3/uL (0.0-0.2); #Eosinphils 0.2 10x3/uL (0.0-0.5); #Monocytes 0.5 10x3/uL (0.0-1.1); #Neutrophils 2.6 10x3/uL (1.5-8.4); %Basophils 0.9 % (0.0-2.0); %Eosinophils 3.3 % (0.0-6.0); %Lymphocytes 36.8 % (18.0-47.0); %Monocytes 9.5 % (0.0-10.0); %Neutrophils 48.9 % (40.0-75.0); Hematocrit 40.1 % (34.9-44.5); Hemoglobin 12.9 g/dL (12.0-15.5); Mean Corpuscular HGB CONC 32.2 g/dL (32.0-36.0); Mean Corpuscular Hemoglobin 30.1 pg (27.0-33.0); Mean Corpuscular Volume 93.5 fl (81.6-98.3); Mean Platelet Volume 9.5 fl (7.4-10.4); Platelet Count 355 10x3/uL (150-450); RBC Distribution Width 12.5 % (11.5-14.5); Red Blood Cell (RBC) Count 4.29 10x6/uL (3.90-5.03); White Blood Cell (WBC) Count 5.4 10x3/uL (3.5-10.5)
[2023-03-01 13:38] LABS: Prothrombin Time 10.4 sec (9.5-12.1)
[2023-03-01 13:40] LABS: Anion Gap 14 mmol/L (10-20); BUN (Urea Nitrogen) 19 mg/dL (9.8-20.1); Calc. Creatinine Clearance 0 mL/min (70-130); Calcium 9.1 mg/dL (7.8-10.44); Carbon Dioxide 29 mmol/L (23-31); Chloride 104 mmol/L (98-107); Estimated GFR 85; Glucose 88 mg/dL (83-110); Potassium 4.3 mmol/L (3.5-5.1); Sodium 143 mmol/L (136-145)
== END 2023-03-01 12:30 | disposition home or self-care (01) ==
LOC: LABBT 12:29
PROVIDERS: ATTEND Orthopaedic Surgery
DX: Z01.818 Encounter for other preprocedural examination (principal); M16.12 Unilateral primary osteoarthritis, left hip
CPT/HCPCS: 80048; 85025; 85610; 87081; 93005; 93010

== ENCOUNTER 2023-03-06 06:24 | Inpatient (IN) | payer MEDICARE ==
[2023-03-01 12:51] VITALS: BMI 27.3
[2023-03-06] MEDS ORDERED: Tranexamic Acid 1,000 MG/10 ML VIAL ONE ×2 (07:54→11:14)
[2023-03-06] MEDS ORDERED: Vancomycin 1 GM/200 ML (FROZEN) BAG ONE (07:54)
[2023-03-06] MEDS ORDERED: Sodium Chloride 0.9% 200 ML ONE (07:54)
[2023-03-06] MEDS ORDERED: CEFAZOLIN 2 GM VIAL ONE (07:54)
[2023-03-06] MEDS ORDERED: Bupivacaine PF 0.5% 30 ML VIAL ONE ×2 (08:03→09:10)
[2023-03-06] MEDS ORDERED: Midazolam HCl 2 mg/2 ml Vial ONE (08:03)
[2023-03-06] MEDS ORDERED: fentaNYL 50 mcg/mL 1 mL Vial ONE ×3 (08:03→14:10)
[2023-03-06] MEDS ORDERED: EPINEPHrine 1 MG/ML AMP ONE (08:04)
[2023-03-06] MEDS ORDERED: Ondansetron PF 4 MG/2 ML Vial ONE ×2 (08:34→09:51)
[2023-03-06] MEDS ORDERED: Zolpidem Tartrate 5 MG TAB PO PRN (09:24)
[2023-03-06] MEDS ORDERED: fentaNYL 50 mcg/mL 1 mL Vial SLOW IVP PRN (09:24)
[2023-03-06] MEDS ORDERED: diphenhydrAMINE 25 MG CAP PO PRN (09:24)
[2023-03-06] MEDS ORDERED: Promethazine HCl 25 MG/ML VIAL IM PRN ×2 (09:24→11:12)
[2023-03-06] MEDS ORDERED: Acetaminophen 325 MG TAB PO PRN (09:24)
[2023-03-06] MEDS ORDERED: Propofol 500 MG/50 ML VIAL ONE (09:25)
[2023-03-06] MEDS ORDERED: Albuterol 200 PUFF (6.7GM INHALER) INH PRN (09:26)
[2023-03-06] MEDS ORDERED: Docusate 100 MG CAP PO PRN (09:26)
[2023-03-06] MEDS ORDERED: ePHEDrine Sulfate 50 MG/10 ML VIAL ONE (09:51)
[2023-03-06] MEDS ORDERED: PHENYLEPHRINE-NS 100 MCG/ML 10 ML SYRINGE ONE (09:51)
[2023-03-06] MEDS ORDERED: PROPOFOL 200 MG/20 ML VIAL ONE (09:51)
[2023-03-06] MEDS ORDERED: Ondansetron HCl/PF 4 MG/2 ML Vial IVP PRN (11:12)
[2023-03-06] MEDS: CEFAZOLIN 2 GM in Sodium Chloride 0.9% 100 ML IVPB SCH ×2 (15:06→21:47)
[2023-03-06] MEDS: Sodium Chloride 0.9% 1,000 ML IV SCH ×2 (15:10→20:50)
[2023-03-06] MEDS ORDERED: HYDROcodone/Acetaminophen 5/325 mg Tablet PO PRN (15:31)
[2023-03-06] MEDS: Ondansetron PF 4 MG/2 ML Vial IVP PRN (15:35)
[2023-03-06] MEDS: HYDROcodone/Acetaminophen 5/325 mg Tablet PO PRN ×2 (17:59→21:46)
[2023-03-06] MEDS: Divalproex Sodium 250 MG (DR) TAB PO SCH (20:50)
[2023-03-06] MEDS: Senokot S 8.6-50 MG TAB PO SCH (20:50)
[2023-03-06] MEDS: Ferrous Gluconate 324 MG TAB PO SCH (20:50)
[2023-03-06] MEDS: Atorvastatin Calcium 20 MG TAB PO SCH (20:51)
[2023-03-06] MEDS: Aspirin 81 mg Enteric Coated Tablet PO SCH (20:51)
[2023-03-06] MEDS ORDERED: Aspirin Chewable 81 MG TAB PO SCH (21:00)
[2023-03-06] MEDS ORDERED: [UNRECOGNIZED DRUG - OTHER] PO SCH (21:00)
[2023-03-07] MEDS: HYDROcodone/Acetaminophen 5/325 mg Tablet PO PRN ×3 (02:13→14:42)
[2023-03-07] MEDS: Sodium Chloride 0.9% 1,000 ML IV SCH ×3 (04:38→23:45)
[2023-03-07 05:34] LABS: Hematocrit 32.2 % (36.0-47.0); Hemoglobin 10.2 g/dL (12.0-16.0); Mean Corpuscular HGB CONC 31.7 g/dL (32.0-36.0); Mean Corpuscular Hemoglobin 30.7 pg (27.0-31.0); Mean Platelet Volume 9.7 fL (7.4-10.4); Platelet Count 238 10x3/uL (130-400); Red Blood Cell (RBC) Count 3.32 mill/uL (4.20-5.40); White Blood Cell (WBC) Count 6.8 10x3/uL (4.8-10.8)
[2023-03-07] MEDS: Aspirin 81 mg Enteric Coated Tablet PO SCH ×2 (08:58→22:01)
[2023-03-07] MEDS: Multivitamin W/ Minerals 1 TAB PO SCH (08:59)
[2023-03-07] MEDS: Divalproex Sodium 250 MG (DR) TAB PO SCH ×2 (08:59→22:01)
[2023-03-07] MEDS: Senokot S 8.6-50 MG TAB PO SCH ×2 (08:59→22:02)
[2023-03-07] MEDS: Ferrous Gluconate 324 MG TAB PO SCH ×2 (08:59→22:01)
[2023-03-07] MEDS ORDERED: EPA PO SCH ×2 (09:00)
[2023-03-07] MEDS ORDERED: KRILL PO SCH ×2 (09:00)
[2023-03-07] MEDS ORDERED: Non-Formulary Item 1 EACH (Cholecalciferol (Vitamin D3) [Vitamin D3] 50 MCG Capsule) PO SCH (09:00)
[2023-03-07] MEDS ORDERED: [UNRECOGNIZED DRUG - OTHER] PO SCH (09:00)
[2023-03-07] MEDS ORDERED: LIPIDS PO SCH ×2 (09:00)
[2023-03-07] MEDS ORDERED: OMEGA PO SCH ×2 (09:00)
[2023-03-07] MEDS ORDERED: DHA PO SCH ×2 (09:00)
[2023-03-07] MEDS ORDERED: Non-Formulary Item 1 EACH (Fluticasone/Umeclidin/Vilanter [Trelegy Ellipta 100-62.5-25] 1 IH SCH (09:00)
[2023-03-07] MEDS ORDERED: Non-Formulary Item 1 EACH (Cyanocobalamin (Vitamin B-12) [Vitamin B-12] 1,000 MCG Capsule PO SCH (09:00)
[2023-03-07] MEDS ORDERED: VITAMIN E MIXED 1000 UNIT PO SCH (09:00)
[2023-03-07] MEDS: Cholecalciferol 1,000 UNITS (25 MCG) TAB PO SCH (09:09)
[2023-03-07] MEDS: Calcium Carbonate 600 MG + Vit D TAB PO SCH (09:09)
[2023-03-07] MEDS: Cyanocobalamin (Vitamin B-12) 1,000 MCG TAB PO SCH (09:09)
[2023-03-07] MEDS ORDERED: Ondansetron ODT 4 MG TAB PO PRN (11:41)
[2023-03-07] MEDS ORDERED: Scopolamine 1.5 mg/72 hour Patch TD SCH (12:00)
[2023-03-07] MEDS: Ketorolac Tromethamine 30 MG/ML VIAL IVP SCH ×3 (12:22→23:44)
[2023-03-07] MEDS: Ipratropium/Albuterol 3 ML NEB NEB SCH ×2 (13:42→18:17)
[2023-03-07] MEDS: Ondansetron PF 4 MG/2 ML Vial IVP PRN (17:29)
[2023-03-07] MEDS: Mometasone 100 MCG HFA INHALER (RT USE) INH SCH (18:19)
[2023-03-07] MEDS: Atorvastatin Calcium 20 MG TAB PO SCH (22:01)
[2023-03-08] MEDS: Ipratropium/Albuterol 3 ML NEB NEB SCH ×5 (00:38→23:12)
[2023-03-08] MEDS: Ketorolac Tromethamine 30 MG/ML VIAL IVP SCH ×3 (06:29→18:36)
[2023-03-08] MEDS: Mometasone 100 MCG HFA INHALER (RT USE) INH SCH ×2 (06:42→19:01)
[2023-03-08] MEDS: Divalproex Sodium 250 MG (DR) TAB PO SCH ×2 (10:15→21:30)
[2023-03-08] MEDS: Senokot S 8.6-50 MG TAB PO SCH ×2 (10:15→21:30)
[2023-03-08] MEDS: Multivitamin W/ Minerals 1 TAB PO SCH (10:15)
[2023-03-08] MEDS: Aspirin 81 mg Enteric Coated Tablet PO SCH ×2 (10:15→21:30)
[2023-03-08] MEDS: Ferrous Gluconate 324 MG TAB PO SCH ×2 (10:15→21:30)
[2023-03-08] MEDS: HYDROcodone/Acetaminophen 5/325 mg Tablet PO PRN (10:16)
[2023-03-08] MEDS: Calcium Carbonate 600 MG + Vit D TAB PO SCH (10:18)
[2023-03-08] MEDS: Cholecalciferol 1,000 UNITS (25 MCG) TAB PO SCH (10:18)
[2023-03-08] MEDS: Cyanocobalamin (Vitamin B-12) 1,000 MCG TAB PO SCH (10:18)
[2023-03-08 15:15] LABS: Bilirubin Negative (Negative); Blood, Urine Negative (Negative); CAUTI Indications for Culture Dysuria,urgency,freq; Clarity Clear (Clear); Glucose, Urine (Dipstick) Normal (Negative); Ketone, Urine Negative (Negative); Leukocyte 75 Leu/uL (Negative); Nitrite Negative (Negative); Protein, Urine (Dipstick) Negative (Neg-Trace); RBC/HPF 0-3 HPF (0-3); Squamous Epithelial 0-3 HPF (0-3); Urobilinogen Normal mg/dL (Less than 2); pH, Urine 5.5 (5.0-9.0)
[2023-03-08 15:16] LABS: Bacteria/HPF Rare-Few HPF (None Seen)
[2023-03-08 15:18] LABS: Urine Culture Reflex No No
[2023-03-08] MEDS: Sodium Chloride 0.9% 1,000 ML IV SCH ×2 (16:01→21:32)
[2023-03-08] MEDS: Atorvastatin Calcium 20 MG TAB PO SCH (21:30)
[2023-03-09] MEDS: Ketorolac Tromethamine 30 MG/ML VIAL IVP SCH ×2 (00:01→05:47)
[2023-03-09] MEDS: Mometasone 100 MCG HFA INHALER (RT USE) INH SCH (06:50)
[2023-03-09] MEDS: Ipratropium/Albuterol 3 ML NEB NEB SCH (06:53)
[2023-03-09 08:18] VITALS: BP 117/71; TEMP 98.1
[2023-03-09] MEDS: Sodium Chloride 0.9% 1,000 ML IV SCH (08:40)
[2023-03-09] MEDS: Cholecalciferol 1,000 UNITS (25 MCG) TAB PO SCH ×2 (09:47→09:50)
[2023-03-09] MEDS: Aspirin 81 mg Enteric Coated Tablet PO SCH (09:47)
[2023-03-09] MEDS: Divalproex Sodium 250 MG (DR) TAB PO SCH (09:47)
[2023-03-09] MEDS: Cyanocobalamin (Vitamin B-12) 1,000 MCG TAB PO SCH (09:47)
[2023-03-09] MEDS: Calcium Carbonate 600 MG + Vit D TAB PO SCH ×2 (09:47→09:51)
[2023-03-09] MEDS: Multivitamin W/ Minerals 1 TAB PO SCH ×2 (09:47→09:52)
[2023-03-09] MEDS: Senokot S 8.6-50 MG TAB PO SCH (09:47)
[2023-03-09] MEDS: Ferrous Gluconate 324 MG TAB PO SCH (09:47)
== END 2023-03-09 10:52 | disposition home or self-care (01) | DRG 470 ==
LOC: SDC 06:24 → SURG A 12:36 → OBSVTOIN 03-07 12:05
PROVIDERS: ADMIT Orthopaedic Surgery; ATTEND Orthopaedic Surgery
PROC: 0SRB039 Replacement of Left Hip Joint with Ceramic Synthetic Substitute, Cemented, Open Approach (ICD-10-PCS; principal; 2023-03-06)
DX: M16.12 Unilateral primary osteoarthritis, left hip (principal); J44.9 Chronic obstructive pulmonary disease, unspecified; E78.5 Hyperlipidemia, unspecified; M17.12 Unilateral primary osteoarthritis, left knee; Z96.641 Presence of right artificial hip joint; Z90.49 Acquired absence of other specified parts of digestive tract; Z98.42 Cataract extraction status, left eye; Z98.41 Cataract extraction status, right eye
CPT/HCPCS: 36416; 81001; 85027; 94640; 96365; 96366; 96375; C1776; G0378; J0171; J1885; J2250; J2405; J2550; J2704; J3010; J3370-JW; J3490; J7050; J7620; Q0162; S0020

== ENCOUNTER 2023-06-21 14:39 | Outpatient (CLI) | payer MEDICARE | END 2023-06-21 14:40 | disposition home or self-care (01) | LOC: SCSMRI 14:39 | PROVIDERS: ATTEND Internal Medicine Hematology & Oncology | DX: C25.0 Malignant neoplasm of head of pancreas (principal); R42 Dizziness and giddiness; R51.9 Headache, unspecified | CPT/HCPCS: 70553; 82565 ==

== ENCOUNTER 2023-06-23 10:23 | Outpatient (CLI) | payer MEDICARE ==
[2023-06-23] MEDS ORDERED: Iopamidol 370 76% 100 ML VIAL ONE (13:43)
== END 2023-06-23 10:24 | disposition home or self-care (01) ==
LOC: BICCT 10:23
PROVIDERS: ATTEND Internal Medicine Hematology & Oncology
DX: C25.9 Malignant neoplasm of pancreas, unspecified (principal); E04.2 Nontoxic multinodular goiter; N63.20 Unspecified lump in the left breast, unspecified quadrant; E27.8 Other specified disorders of adrenal gland; N28.89 Other specified disorders of kidney and ureter; R91.8 Other nonspecific abnormal finding of lung field; R16.0 Hepatomegaly, not elsewhere classified
CPT/HCPCS: 71260; Q9967

== ENCOUNTER 2023-12-19 08:03 | Outpatient (CLI) | payer MEDICARE, OTHER ==
[2023-12-19] MEDS ORDERED: Iopamidol 370 76% 100 ML VIAL ONE (09:15)
[2023-12-19] MEDS ORDERED: Magnevist 469MG/ML 20 ML VIAL ONE (11:01)
== END 2023-12-19 08:04 | disposition home or self-care (01) ==
LOC: MERGE 08:03 → MRI 08:03
PROVIDERS: ATTEND Internal Medicine Hematology & Oncology
DX: C25.0 Malignant neoplasm of head of pancreas (principal); C34.02 Malignant neoplasm of left main bronchus; C79.51 Secondary malignant neoplasm of bone; G93.9 Disorder of brain, unspecified; I99.8 Other disorder of circulatory system; Z79.899 Other long term (current) drug therapy
CPT/HCPCS: 70553; 71260; 74177; 78306; 82565; A9503; J1642; A9579; Q9967